=== PATIENT | female | born 1985 | race Hispanic/Latino ===

== ENCOUNTER 2017-12-09 19:40 | Emergency (ER) | payer BC ==
[2017-12-09 19:59] VITALS: BP 148/90; PULSE 75; RESP 16; TEMP 98; O2SAT 100
[2017-12-09] MEDS ORDERED: Tdap Vaccine 0.5 ml Vial (10-64 yrs) IM ONE ×2 (20:02→21:03)
[2017-12-09] MEDS ORDERED: Lidocaine PF 2% (5 ml) Inj (For Cardiac Arrhy) ONE (20:10)
[2017-12-09] MEDS ORDERED: Lidocaine 2% PF (10 ml) Amp INFIL ONE (20:13)
--- NOTE | 2017-12-09 20:19 | ED PDOC ---
HPI: General Adult Chief Complaint (Provider): Abnormal Skin Integrity History Per: Patient History/Exam Limitations: no limitations Onset/Duration Of Symptoms: Hrs Additional Complaint(s): Zainab Flores is a 32 year old female with no past medical history who is presenting to the ED for evaluation of laceration to left hand, onset around 6:30 pm today. Patient states that she was trying to remove material from the bathroom and accidentally cut herself with a knife on her left 3rd digit. She states that she is left handed and adds that she injured her left fourth digit yesterday. Patient denies any numbness or other medical complaints. PMD: In [place] <Prudencio Blake - Last Filed: 12/09/17 23:00> <Roberto Carlos Zamarripa - Last Filed: 12/11/17 04:43> Time Seen by Provider: 12/09/17 20:10 Chief Complaint (Nursing): Abnormal Skin Integrity Past Medical History Reviewed: Historical Data, Nursing Documentation, Vital Signs Vital Signs: Last Vital Signs Temp 98.0 F 12/09/17 19:56 Pulse 75 12/09/17 19:56 Resp 16 12/09/17 19:56 BP 148/90 12/09/17 19:56 Pulse Ox 100 12/09/17 19:56 - Medical History PMH: No Chronic Diseases - Surgical History Surgical History: No Surg Hx - Family History Family History: States: Unknown Family Hx <Prudencio Blake - Last Filed: 12/09/17 23:00> Vital Signs: Last Vital Signs Temp 98.0 F 12/09/17 19:56 Pulse 75 12/09/17 19:56 Resp 16 12/09/17 19:56 BP 148/90 12/09/17 19:56 Pulse Ox 100 12/09/17 23:01 <Roberto Carlos Zamarripa - Last Filed: 12/11/17 04:43> - Allergies Allergies/Adverse Reactions: Allergies Allergy/AdvReac Type Severity Reaction Status Date / Time No Known Allergies Allergy Verified 12/09/17 19:56 Review of Systems ROS Statement: Except As Marked, All Systems Reviewed And Found Negative Musculoskeletal: Positive for: Other (laceration to left hand, 3rd digit) Neurological: Positive for: Numbness <Prudencio Blake - Last Filed: 12/09/17 23:00> Physical Exam - Reviewed Nursing Documentation Reviewed: Yes Vital Signs Reviewed: Yes - Physical Exam Appears: Positive for: Well, Non-toxic, No Acute Distress Head Exam: Positive for: ATRAUMATIC, NORMAL INSPECTION, NORMOCEPHALIC Skin: Positive for: Normal Color, Warm, DRY Extremity: Positive for: Other (Distal tip of 3rd digit of left hand: 2 cm laceration to volar surface, DIP without difficulty; Additional superficial laceration to distal tip of 4th digit of left hand). Negative for: Deformity, Swelling Neurologic/Psych: Positive for: Alert, Oriented. Negative for: Motor/Sensory Deficits <Prudencio Blake - Last Filed: 12/09/17 23:00> - ECG O2 Sat by Pulse Oximetry: 100 (RA) Pulse Ox Interpretation: Normal - Progress ED Course And Treament: Tdap 0.5 ml IM x 1 dose tylenol 975mg x dose <Prudencio Blake - Last Filed: 12/09/17 23:00> Medical Decision Making Medical Decision Making: Time: 20:02 --Adacel 0.5 ml IM Laceration repair. 21:00 Tylenol 975 mg Tylenol ordered. Patient tolerated procedure well. Patient put in finger splint. Upon provider assessment, patient is stable for discharge home. Scribe Attestation: Documented by Fany Drew, acting as a scribe for Prudencio Blake PA-C. Provider Scribe Attestation: All medical record entries made by the Scribe were at my direction and personally dictated by me. I have reviewed the chart and agree that the record accurately reflects my personal performance of the history, physical exam, medical decision making, and the department course for this patient. I have also personally directed, reviewed, and agree with the discharge instructions and disposition. <Prudencio Blake - Last Filed: 12/09/17 23:00> Procedures - Laceration/Wound Repair Left Upper Finger Wound Length (cm): 2 Anesthesia: Lidocaine w/ Epi (2% Lidocaine used) Volume Anesthetic (ccs): 4 Wound Repaired With: Sutures Suture Size/Type: 4:0, nylon Number of Sutures: 5 Wound Complexity: Simple <Prudencio Blake - Last Filed: 12/09/17 23:00> Disposition - Patient ED Disposition Is Patient to be Admitted: No - Disposition Disposition: Routine/Home Disposition Time: 21:04 <Prudencio Blake - Last Filed: 12/09/17 23:00> <Roberto Carlos Zamarripa - Last Filed: 12/11/17 04:43> - Clinical Impression Clinical Impression: Finger laceration - Disposition Condition: FAIR Additional Instructions: f/u with pmd /urgent care /ED for wound check in 2 days. 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 <Roberto Carlos Zamarripa - Last Filed: 12/11/17 04:43>
== END 2017-12-09 21:16 | disposition home or self-care (01) ==
LOC: H.ER 19:40
DX: S61.412A Laceration without foreign body of left hand, initial encounter (principal); W26.0XXA Contact with knife, initial encounter; Y92.002 Bathroom of unspecified non-institutional (private) residence as the place of occurrence of the external cause